=== PATIENT | female | born 1960 | race Caucasian/White ===

== ENCOUNTER 2021-10-15 13:23 | Emergency (ER) | payer OTHER ==
[~2021-10-15 13:23] MED LIST: ASPIRIN EC81 MG PO; LIPITOR40 MG PO; LOPRESSOR25 MG PO; MS CONTIN15 MG PO; SPIRIVA RESPIMAT4 GM INH; SYMBICORT 80-10.2 GM INH; TRAZODONE 100M100 MG PO; VENTOLIN HFA IN18 GM INH; ZESTRIL2.5 MG PO; ZYRTEC10 M3 PO
[2021-10-15] MEDS ORDERED: VENTOLIN HFA IN18 GM INH (14:58)
[2021-10-15] MEDS ORDERED: ZPAK PO (14:58)
[2021-10-15] MEDS ORDERED: MEDROL 4MG DOSEP4 MG PO (14:58)
== END 2021-10-15 15:10 | disposition home or self-care (01) ==
LOC: FER 13:23
DX: U07.1 COVID-19 (principal); J44.9 Chronic obstructive pulmonary disease, unspecified; I10 Essential (primary) hypertension
CPT/HCPCS: 71045; J1100

== ENCOUNTER 2021-10-22 11:48 | Emergency (ER) | payer OTHER ==
[~2021-10-22 11:48] MED LIST changes: +MEDROL 4MG DOSEP4 MG PO; +ZPAK PO
[2021-10-22 13:23] LABS: BASOPHIL 0.2 % (0-2); EOSINOPHIL 0 % (0-5); HCT 42.3 % (37.0-47.0); HGB 13.9 g/dl (12.5-16.0); LYMPHOCYTE 13.3 % (15-48); MCH 30.9 pg (25.0-31.0); MCHC 32.9 g/dL (32.0-36.0); MONOCYTE 5.2 % (0-12); MPV 9.5 fL (6.0-9.5); NEUTROPHIL 80.7 % (41-80); NRBC 0; PLT 242 K/uL (150-400); RDW 13.2 % (11.5-14.0); WBC 10.2 K/uL (4.0-10.5)
[2021-10-22 13:26] LABS: INR 0.93 (0.9-1.2); PROTHROMBIN TIME 11.9 SECONDS (11.8-13.4)
[2021-10-22 13:58] LABS: BUN/CREAT RATIO (CALC) 14.6 RATIO; CREATININE 0.89 mg/dL (0.51-0.95); POTASSIUM 4.8 mmol/L (3.5-5.1)
== END 2021-10-22 15:33 | disposition home or self-care (01) ==
LOC: FER 11:48
PROVIDERS: Nurse Practitioner Family
DX: U07.1 COVID-19 (principal); E86.0 Dehydration; I10 Essential (primary) hypertension; J44.9 Chronic obstructive pulmonary disease, unspecified
CPT/HCPCS: 36415; 71045; 80048; 85025; 85610; J7030